=== PATIENT | female | born 1980 | race Caucasian/White ===

== ENCOUNTER 2023-06-17 01:47 | Emergency (ER) | payer MEDICAID ==
[2023-06-17] MEDS ORDERED: Lidocaine 1% with EPINEPHrine 1:100,000 20 ML MDV INJECT ONE (02:40)
[2023-06-17] MEDS ORDERED: Diphtheria,Pertussis(Acell),Tetanus Vaccine 0.5 ML Syringe IM ONE (03:17)
[2023-06-17] MEDS ORDERED: Bacitracin Oint 1 GM U/D Packet TOP ONE (03:17)
== END 2023-06-17 03:39 | disposition home or self-care (01) ==
LOC: DL.ED 01:47
DX: S71.112A Laceration without foreign body, left thigh, initial encounter (principal); Z88.0 Allergy status to penicillin; Z23 Encounter for immunization; X83.8XXA Intentional self-harm by other specified means, initial encounter
CPT/HCPCS: 12004; 12005; 90471; 90715; 99282-25; 99283; A9270-GY; J3490